=== PATIENT | female | born 1965 | race Caucasian/White ===

== ENCOUNTER → 2016-06-07 | Day surgery (SDC) | payer OTHER ==
[~2016-06-07] MED LIST: AMLO2.5T PO; IBUP800T23 PO; LEVO75TA3 PO; LIDOCAINE HCL 1% PF 30 ML VIAL INFIL ONE; MEPERIDINE HCL 25 MG/ML VIAL IV ONE; MIDAZOLAM HCL 2 MG/2 ML VIAL IV ONE; MONT10TA4 PO; OMEP10CA PO; PROPOFOL 200 MG/20 ML AMP IV ONE; SODIUM CHLORIDE 0.9% 10 ML VIAL ONE; SPIRCAP INH; TRIAMCINOLONE ACETONIDE 40 MG/ML VIAL NERV BLOCK ONE; VENTAER INH; methylPREDNISolone ACETATE 80 MG/ML VIAL ONE
--- NOTE | 2016-06-12 13:30 | M6 ---
cc: PATITO DEAN M.D. DATE 06/07/2016 DATE OF 1965 PROCEDURE Fluoroscopically guided L5-S1 translaminar epidural steroid injection. PROCEDURE NOTE History and physical was completed and signed. Consent was signed. Procedure site was marked. Medications were listed and reconciled. Pain score was recorded. Allergies were noted. Time out was taken. Fluoroscopy time was recorded where applicable. Sedation was administered or directed by Dr. Dean. The patient was given oxygen. The patient was monitored by a registered nurse. Total procedure time was greater than 15 minutes. IV was started, blood pressure cuff, pulse oximeter and EKG were applied. The patient was placed in the prone position on a Ethan table, sedated with small amounts of propofol titrated to effect. Vital signs were monitored and remained stable throughout the procedure. The lumbar area was prepped with alcohol and 10% Betadine solution and draped with sterile drapes. Fluoroscopy was used to visualize the L5-S1 translaminar space. The skin was infiltrated with 1% Xylocaine using a 27 gauge needle. Then a 3-1/2-inch 18-gauge Laboy needle was advanced using fluoroscopic guidance and the [id number] technique into the epidural space at L5-S1 slightly to the left of the midline. There was negative aspiration for blood or any other type of fluid and the patient was given 10 mL of half percent Xylocaine, 80 mg of Depo-Medrol. Following this, the patient was taken to the recovery room with stable vital signs neurologically intact. W. MD JOSE Krause/TETE /8:01 AM /1:26 PM
== END | disposition home or self-care (01) ==
LOC: PHSDC 06:47
PROVIDERS: ATTEND Pain Medicine Interventional Pain Medicine
DX: M54.5 Low back pain (principal); M79.605 Pain in left leg; M79.604 Pain in right leg
CPT/HCPCS: 62323; 99152; J1040; J2175; J2250; J3301

== ENCOUNTER → 2017-01-01 | Day surgery (SDC) | payer OTHER ==
[~2017-01-01] MED LIST changes: +LIDOCAINE HCL 1% 30 ML VIAL NERV BLOCK ONE; -LIDOCAINE HCL 1% PF 30 ML VIAL INFIL ONE; -MIDAZOLAM HCL 2 MG/2 ML VIAL IV ONE
--- NOTE | 2017-01-01 11:34 | M6 ---
cc: Manuel DEAN DEANNA K. M.D. DATE 01/01/2017 DATE OF 1965 PROCEDURE Fluoroscopically guided L5-S1 translaminar epidural steroid injection. Ms. Coello has left greater than right lower extremity pain secondary to severe spinal stenosis. She also has low back pain aggravated by lumbar extension which is secondary to lumbar facet joint arthropathy. She has seen a neurosurgeon (Dr. Xavier Palma) back in 2014 who recommended lumbar facet joint injections. We did that several times and we also performed radiofrequency ablation of the lumbar facet joints. Today the patient is complaining mostly of the lower extremity pain. We are planning a lumbar epidural steroid injection and in hopes of limiting her exposure to steroids in the future, I have briefly discussed the possibility of repeating the radiofrequency ablation of her lumbar facet joints which is a procedure that can be done without the use of steroid. Overall for a patient her age, her spinal stenosis is fairly severe and the facet joint arthropathy is also fairly severe. PROCEDURE NOTE History and physical was completed and signed. Consent was signed. Procedure site was marked. Medications were listed and reconciled. Pain score was recorded. Allergies were noted. Time out was taken. Fluoroscopy time was recorded where applicable. Sedation was administered or directed by Dr. Dean. The patient was given oxygen. The patient was monitored by a registered nurse. Total procedure time was greater than 15 minutes. IV was started, blood pressure cuff, pulse oximeter and EKG were applied. The patient was placed in the prone position on a Ethan table, sedated with small amounts of propofol titrated to effect. Vital signs were monitored and remained stable throughout the procedure. The lumbar area was prepped with alcohol and 10% Betadine solution and draped with sterile drapes. Fluoroscopy was used to visualize the L5-S1 interlaminar space. The skin was infiltrated with 1% Xylocaine using a 27 gauge needle. Then a 3-1/2-inch 18-gauge Laboy needle was advanced using fluoroscopic guidance and the [id number] technique into the epidural space at L5-S1 slightly to the left of the midline. There was negative aspiration for blood or any other type of fluid and the patient was given 10 mL of half percent Xylocaine and 80 mg of Depo-Medrol. Following this, the patient was taken to the recovery room with stable vital signs neurologically intact. W. MD JOSE Krause/TETE /8:44 AM /11:28 AM
== END | disposition home or self-care (01) ==
LOC: PHSDC 06:47
PROVIDERS: ATTEND Pain Medicine Interventional Pain Medicine
DX: M54.5 Low back pain (principal)
CPT/HCPCS: 62323; 99152; J1040; J2175; J3301